=== PATIENT | male | born 1985 | race Caucasian/White ===

== ENCOUNTER 2024-05-10 15:46 | Outpatient (REF) | payer OTHER, SELFPAY ==
[2024-05-10 22:54] LABS: Anion Gap 10.2 mmol/L (3-11); BUN 6 mg/dL (7-18); CO2 25.8 mmol/L (21.0-32.0); CREATININE 0.8 mg/dL (0.70-1.30); Calcium 9.1 mg/dL (8.5-10.1); Calculated LDL 106 mg/dL (<100); Chloride 105 mmol/L (98-107); Cholesterol 175 mg/dL (<200); Estimated GFR 117.63 (mL/min/1.73m2); Glucose 106 mg/dL (74-106); HDL Cholesterol 49 mg/dL (40-60); Potassium 4.2 mmol/L (3.5-5.1); Sodium 141 mmol/L (136-145); Triglyceride 103 mg/dL (<150)
== END 2024-05-10 15:47 | disposition home or self-care (01) ==
LOC: NCHCN 15:46
PROVIDERS: PCP Nurse Practitioner Family; Visit Provider Nurse Practitioner Family
DX: Z00.00 Encounter for general adult medical examination without abnormal findings (principal); Z13.220 Encounter for screening for lipoid disorders; Z13.228 Encounter for screening for other metabolic disorders
CPT/HCPCS: 80048; 80061